=== PATIENT | male | born 1995 | race Asian ===

== ENCOUNTER 2021-03-26 13:04 | Emergency (ER) | payer OTHER ==
[~2021-03-26] VITALS: Ht 180.3 cm; Wt 106.6 kg
[2021-03-26 13:10] VITALS: TEMP 98.7
[2021-03-26 14:24] VITALS: BP 133/74
== END 2021-03-26 14:25 | disposition home or self-care (01) ==
LOC: ED 13:04
DX: M25.552 Pain in left hip (principal); S39.012A Strain of muscle, fascia and tendon of lower back, initial encounter; V89.2XXA Person injured in unspecified motor-vehicle accident, traffic, initial encounter; Y92.89 Other specified places as the place of occurrence of the external cause
CPT/HCPCS: 96372; 99283; J1885